=== PATIENT | female | born 1985 | race Caucasian/White ===

== ENCOUNTER 2018-06-22 01:43 | Emergency (ER) | payer MEDICAID ==
[~2018-06-22] VITALS: Ht 160 cm; Wt 83.8 kg
[~2018-06-22 01:43] MED LIST: NO HOME MEDS
[2018-06-22] MEDS ORDERED: ketorolac trometh. 30mg/ml inj. IV ONE (02:05)
[2018-06-22] MEDS ORDERED: LORazepam 2 mg/ml vial IV ONE (02:05)
[2018-06-22] MEDS ORDERED: diphenhydrAMINE 50 mg/ml inj IV ONE (02:05)
[2018-06-22] MEDS ORDERED: ondansetron/PF 4mg/2ml inj IV ONE (02:05)
[2018-06-22] MEDS ORDERED: normal saline 1000ML IV soln IVB ONE (02:05)
[2018-06-22 02:21] LABS: BASOPHILS # (AUTO) 0.2 X10'3 (0-0.2); BASOPHILS % (AUTO) 1.9 % (0-1); EOSINOPHILS % (AUTO) 0.3 % (0-6); HEMATOCRIT 39.8 % (35.0-45.0); HEMOGLOBIN 13.5 g/dl (12.0-16.0); LYMPHOCYTES % (AUTO) 11.5 % (21-51); MEAN CORPUSCULAR HEMOGLOBIN 32.2 PG (27.0-31.0); MEAN CORPUSCULAR VOLUME 94.8 FL (78-98); MEAN PLATELET VOLUME 7.6 FL (7.4-10.4); MONOCYTES # (AUTO) 0.3 X10'3 (0-0.9); NEUTROPHILS # (AUTO) 7.2 X10'3 (1.8-7.7); NEUTROPHILS % (AUTO) 82.3 % (42-75); PLATELET COUNT 291 X10'3 (140-440); RED CELL DISTRIBUTION WIDTH 12.1 % (11.5-14.5); WHITE BLOOD COUNT 8.7 X10'3 (4.5-11.0)
[2018-06-22 02:31] LABS: ALANINE AMINOTRANSFERASE 28 U/L (12-78); ALBUMIN/GLOBULIN RATIO 1.1 (1.1-1.5); ALKALINE PHOSPHATASE 92 IU/L (46-116); ANION GAP 13 (8-16); ASPARTATE AMINO TRANSFERASE 23 U/L (10-37); BILIRUBIN,TOTAL 0.5 MG/DL (0.1-1.0); BLOOD UREA NITROGEN 8 MG/DL (7-18); BUN/CREATININE RATIO 9.2 (6.6-38.0); CHLORIDE 104 MMOL/L (99-107); CREATININE 0.87 MG/DL (0.40-0.90); GLUCOSE 114 MG/DL (70-104); LIPASE 171 U/L (73-393); POTASSIUM 3.6 MMOL/L (3.5-5.1); SODIUM 141 MMOL/L (135-145); TOTAL CARBON DIOXIDE 23.8 MMOL/L (24-32); TOTAL PROTEIN 7.5 G/DL (6.4-8.2); eGFR 74 ML/MIN
[2018-06-22] MEDS ORDERED: ONDA8TAB9 PO (02:38)
[2018-06-22 03:09] VITALS: BP 133/63
== END 2018-06-22 03:12 | disposition home or self-care (01) ==
LOC: ER 01:43
DX: R10.10 Upper abdominal pain, unspecified (principal); R11.2 Nausea with vomiting, unspecified; R68.83 Chills (without fever); G89.29 Other chronic pain; J45.909 Unspecified asthma, uncomplicated; Z90.49 Acquired absence of other specified parts of digestive tract; Z12.10 Encounter for screening for malignant neoplasm of intestinal tract, unspecified
CPT/HCPCS: 36415; 80053; 83690; 85025; 96361; 96374; 96375; 99284; J1200; J1885; J2060; J2405

== ENCOUNTER 2018-06-26 21:46 | Emergency (ER) | payer MEDICAID ==
[~2018-06-26] VITALS: Ht 160 cm; Wt 58.0 kg
[~2018-06-26 21:46] MED LIST changes: +ONDA8TAB9 PO
[2018-06-26] MEDS ORDERED: ketorolac tromethamine 15mg/ml inj. IV ONE (23:25)
[2018-06-26] MEDS ORDERED: normal saline 1000ML IV soln IVB ONE (23:25)
[2018-06-26] MEDS ORDERED: haloperidol lactate 5mg/ml inj IM ONE (23:25)
[2018-06-26] MEDS ORDERED: proCHLORperazine 10 MG/2 ml inj IV ONE (23:25)
[2018-06-26] MEDS ORDERED: diphenhydrAMINE 50 mg/ml inj IV ONE (23:25)
[2018-06-26] MEDS ORDERED: PROC25SU30 PO (23:27)
[2018-06-27 00:06] LABS: BASOPHILS # (AUTO) 0.1 X10'3 (0-0.2); BASOPHILS % (AUTO) 1.1 % (0-1); EOSINOPHILS # (AUTO) 0.2 X10'3 (0-0.9); EOSINOPHILS % (AUTO) 2.4 % (0-6); HEMATOCRIT 39.6 % (35.0-45.0); HEMOGLOBIN 13.2 g/dl (12.0-16.0); LYMPHOCYTES # (AUTO) 1.5 X10'3 (1.1-4.8); LYMPHOCYTES % (AUTO) 17.2 % (21-51); MEAN CORPUSCULAR HGB CONC 33.4 % (33.0-36.5); MEAN CORPUSCULAR VOLUME 95.9 FL (78-98); MEAN PLATELET VOLUME 7.7 FL (7.4-10.4); MONOCYTES # (AUTO) 0.5 X10'3 (0-0.9); MONOCYTES % (AUTO) 5.3 % (2-12); NEUTROPHILS # (AUTO) 6.4 X10'3 (1.8-7.7); PLATELET COUNT 288 X10'3 (140-440); RED BLOOD COUNT 4.13 X10'6 (4.20-5.60); RED CELL DISTRIBUTION WIDTH 12.7 % (11.5-14.5); WHITE BLOOD COUNT 8.6 X10'3 (4.5-11.0)
[2018-06-27 00:16] VITALS: BP 118/54
[2018-06-27 00:27] LABS: ALANINE AMINOTRANSFERASE 27 U/L (12-78); ALBUMIN/GLOBULIN RATIO 1.1 (1.1-1.5); ALKALINE PHOSPHATASE 86 IU/L (46-116); ANION GAP 12 (8-16); ASPARTATE AMINO TRANSFERASE 23 U/L (10-37); BILIRUBIN,TOTAL 0.6 MG/DL (0.1-1.0); BLOOD UREA NITROGEN 16 MG/DL (7-18); BUN/CREATININE RATIO 19.8 (6.6-38.0); CHLORIDE 102 MMOL/L (99-107); CREATININE 0.81 MG/DL (0.40-0.90); GLUCOSE 82 MG/DL (70-104); LIPASE 178 U/L (73-393); MAGNESIUM 1.7 MG/DL (1.5-2.4); SODIUM 139 MMOL/L (135-145); TOTAL CARBON DIOXIDE 25.5 MMOL/L (24-32); TOTAL PROTEIN 7.6 G/DL (6.4-8.2); eGFR 80 ML/MIN
[2018-06-27 00:30] LABS: POTASSIUM 3.8 MMOL/L (3.5-5.1)
== END 2018-06-27 00:23 | disposition home or self-care (01) ==
LOC: ER 21:48
DX: K29.70 Gastritis, unspecified, without bleeding (principal); G43.A0 Cyclical vomiting, in migraine, not intractable; G89.29 Other chronic pain; R10.13 Epigastric pain; J45.909 Unspecified asthma, uncomplicated; Z98.890 Other specified postprocedural states; Z90.49 Acquired absence of other specified parts of digestive tract
CPT/HCPCS: 36415; 80053; 83690; 83735; 85025; 96361; 96372; 96374; 96375; 99284; J0780; J1200; J1630; J1885

== ENCOUNTER 2018-12-29 21:35 | Emergency (ER) | payer MEDICAID ==
[~2018-12-29] VITALS: Ht 160 cm; Wt 82.3 kg
[~2018-12-29 21:35] MED LIST changes: +PROC25SU30 PO
[2018-12-29] MEDS ORDERED: normal saline 1000ML IV soln IVB ONE (21:40)
[2018-12-29 22:01] LABS: BASOPHILS # (AUTO) 0.1 X10'3 (0-0.2); BASOPHILS % (AUTO) 0.9 % (0-1); EOSINOPHILS # (AUTO) 0.3 X10'3 (0-0.9); HEMATOCRIT 38.6 % (35.0-45.0); LYMPHOCYTES # (AUTO) 2.9 X10'3 (1.1-4.8); LYMPHOCYTES % (AUTO) 29.8 % (21-51); MEAN CORPUSCULAR HGB CONC 33.8 g/dL (33.0-36.5); MEAN CORPUSCULAR VOLUME 94.9 FL (78-98); MEAN PLATELET VOLUME 7.3 FL (7.4-10.4); MONOCYTES # (AUTO) 0.8 X10'3 (0-0.9); MONOCYTES % (AUTO) 8.2 % (2-12); NEUTROPHILS # (AUTO) 5.7 X10'3 (1.8-7.7); NEUTROPHILS % (AUTO) 58.1 % (42-75); PLATELET COUNT 289 X10'3 (140-440); RED BLOOD COUNT 4.06 X10'6 (4.20-5.60); RED CELL DISTRIBUTION WIDTH 13.3 % (11.5-14.5); WHITE BLOOD COUNT 9.8 X10'3 (4.5-11.0)
[2018-12-29 22:07] LABS: ALANINE AMINOTRANSFERASE 40 U/L (12-78); ALBUMIN 3.5 G/DL (3.4-5.0); ALBUMIN/GLOBULIN RATIO 1.1 (1.1-1.5); ALKALINE PHOSPHATASE 80 IU/L (46-116); ANION GAP 6 (8-16); ASPARTATE AMINO TRANSFERASE 23 U/L (10-37); BILIRUBIN,TOTAL 0.3 MG/DL (0.1-1.0); BLOOD UREA NITROGEN 8 MG/DL (7-18); BUN/CREATININE RATIO 9.4 (6.6-38.0); CHLORIDE 106 MMOL/L (99-107); CREATININE 0.85 MG/DL (0.40-0.90); GLUCOSE 112 MG/DL (70-104); POTASSIUM 3.6 MMOL/L (3.5-5.1); SODIUM 141 MMOL/L (135-145); TOTAL CARBON DIOXIDE 28.6 MMOL/L (24-32); TOTAL PROTEIN 6.8 G/DL (6.4-8.2); eGFR 76 ML/MIN
[2018-12-29 22:17] VITALS: BP 117/74
== END 2018-12-29 22:26 | disposition home or self-care (01) ==
LOC: ER 21:36
DX: R55 Syncope and collapse (principal); R42 Dizziness and giddiness; R61 Generalized hyperhidrosis; R10.9 Unspecified abdominal pain; J45.909 Unspecified asthma, uncomplicated; F12.90 Cannabis use, unspecified, uncomplicated; Z90.49 Acquired absence of other specified parts of digestive tract; Z79.899 Other long term (current) drug therapy
CPT/HCPCS: 36415; 71045; 80053; 85025; 93005; 99284

== ENCOUNTER 2019-07-25 13:09 | Outpatient (CLI) | payer MEDICAID | END 2019-07-25 23:59 | disposition home or self-care (01) | LOC: RAD 13:09 | PROVIDERS: ATTEND Psychiatry & Neurology Neurology | DX: R20.2 Paresthesia of skin (principal); J45.909 Unspecified asthma, uncomplicated | CPT/HCPCS: 95816 ==

== ENCOUNTER 2019-11-03 17:07 | Emergency (ER) | payer MEDICAID ==
[~2019-11-03] VITALS: Ht 160 cm; Wt 74.2 kg
[2019-11-03 17:50] VITALS: BP 108/60
[2019-11-03] MEDS ORDERED: acetaminophen 325mg tablet PO ONE (18:00)
[2019-11-03] MEDS ORDERED: ketorolac tromethamine 15mg/ml inj. IM ONE (19:00)
[2019-11-03] MEDS ORDERED: PRED20TA PO (19:01)
[2019-11-03] MEDS ORDERED: DOXY100C43 PO (19:01)
[2019-11-03] MEDS ORDERED: ALBU18HF2 INH (19:01)
[2019-11-03] MEDS ORDERED: ondansetron 4mg rapidly disintigrating tab PO ONE (19:10)
== END 2019-11-03 20:03 | disposition home or self-care (01) ==
LOC: ER 17:08
DX: J20.9 Acute bronchitis, unspecified (principal); B34.9 Viral infection, unspecified; J45.909 Unspecified asthma, uncomplicated; F12.90 Cannabis use, unspecified, uncomplicated; Z90.49 Acquired absence of other specified parts of digestive tract; Z79.899 Other long term (current) drug therapy
CPT/HCPCS: 96372; 99283; J1885

== ENCOUNTER 2023-08-08 20:48 | Emergency (ER) | payer MEDICAID ==
[~2023-08-08] VITALS: Ht 160 cm; Wt 65.9 kg
[~2023-08-08 20:48] MED LIST changes: +ALBU18HF2 INH
[2023-08-08 21:39] LABS: BASOPHILS # (AUTO) 0.2 X10'3 (0-0.2); BASOPHILS % (AUTO) 1.3 % (0-1); EOSINOPHILS # (AUTO) 0.3 X10'3 (0-0.9); EOSINOPHILS % (AUTO) 2.1 % (0-6); HEMATOCRIT 38.8 % (35.0-45.0); HEMOGLOBIN 12.9 g/dl (12.0-16.0); LYMPHOCYTES # (AUTO) 3.7 X10'3 (1.1-4.8); LYMPHOCYTES % (AUTO) 23.2 % (21-51); MEAN CORPUSCULAR HEMOGLOBIN 32.9 PG (27.0-31.0); MEAN CORPUSCULAR HGB CONC 33.1 g/dL (33.0-36.5); MEAN CORPUSCULAR VOLUME 99.3 FL (78-98); MONOCYTES # (AUTO) 0.9 X10'3 (0-0.9); MONOCYTES % (AUTO) 5.5 % (2-12); NEUTROPHILS # (AUTO) 10.9 X10'3 (1.8-7.7); NEUTROPHILS % (AUTO) 67.9 % (42-75); PLATELET COUNT 341 X10'3 (140-440); RED CELL DISTRIBUTION WIDTH 13.2 % (11.5-14.5)
[2023-08-08] MEDS ORDERED: ketorolac trometh. 30mg/ml inj. IV STA (21:45)
[2023-08-08] MEDS ORDERED: normal saline 1000ML IV soln IVB ONE (21:45)
[2023-08-08 21:46] LABS: BILIRUBIN,URINE NEGATIVE (Neg); CLARITY,URINE SLIGHTLY CLOUDY (Clear); COLOR,URINE YELLOW (Yellow); GLUCOSE, URINE NEGATIVE (Neg); KETONES,URINE NEGATIVE (Neg); LEUKOCYTE ESTERASE ,URINE NEGATIVE (Neg); NITRITES, URINE NEGATIVE (Neg); OCCULT BLOOD,URINE TRACE-INTACT (Neg); PROTEIN,URINE NEGATIVE (Neg); UROBILINOGEN,URINE 0.2 E.U/dL (0.2-1.0)
[2023-08-08 21:50] LABS: ALANINE AMINOTRANSFERASE 14 U/L (12-78); ALBUMIN 4.1 G/DL (3.4-5.0); ALBUMIN/GLOBULIN RATIO 1.3 (1.1-1.5); ALKALINE PHOSPHATASE 89 IU/L (46-116); ANION GAP 9 (8-16); ASPARTATE AMINO TRANSFERASE 23 U/L (10-37); BILIRUBIN,TOTAL 0.3 MG/DL (0.1-1.0); BLOOD UREA NITROGEN 13 MG/DL (7-18); BUN/CREATININE RATIO 14.1 (10.0-20.0); CALCIUM 9.2 MG/DL (8.5-10.1); CHLORIDE 102 MMOL/L (99-107); CREATININE 0.92 MG/DL (0.40-0.90); GLUCOSE 137 MG/DL (70-104); POTASSIUM 3.6 MMOL/L (3.5-5.1); SODIUM 140 MMOL/L (135-145); TOTAL PROTEIN 7.3 G/DL (6.4-8.2); eCRCL 67 ML/MIN; eGFR 68 ML/MIN
[2023-08-08 21:56] LABS: URINE HCG NEGATIVE (NEG)
[2023-08-08 21:58] LABS: UA COLLECTION TYPE VOIDED
--- NOTE | 2023-08-08 22:05 | NUR ---
ivp given by dar rn
[2023-08-08 22:12] LABS: WBC,URINE 0-4 /HPF (0-4)
[2023-08-08 22:13] LABS: BACTERIA,URINE 3+ /HPF (Neg); MUCUS STRANDS FEW /LPF (Neg); RENAL CELLS, URINE FEW /HPF; SQUAMOUS EPITHELIAL CELL,UR MANY /LPF (FEW); TRANSITIONAL EPI CELLS,URINE FEW /HPF
[2023-08-08] MEDS ORDERED: morphine 4 MG/ML inj SYRINge IV ONE (23:25)
[2023-08-08] MEDS ORDERED: ondansetron/PF 4mg/2ml inj IV ONE (23:25)
[2023-08-09 01:08] VITALS: BP 130/70; PULSE 74; RESP 18; TEMP 98.6; O2SAT 98
[2023-08-09] MEDS ORDERED: HYDR-3965 PO (02:22)
[2023-08-09] MEDS ORDERED: ONDA8TAB13 PO (02:22)
--- NOTE | 2023-08-09 02:42 | NUR ---
iv dc'd pt being dischsrged dressing applied
== END 2023-08-09 02:44 | disposition home or self-care (01) ==
LOC: ER 20:49
DX: N20.0 Calculus of kidney (principal); J45.909 Unspecified asthma, uncomplicated; F12.90 Cannabis use, unspecified, uncomplicated; Z90.49 Acquired absence of other specified parts of digestive tract; Z90.710 Acquired absence of both cervix and uterus; Z98.890 Other specified postprocedural states; Z79.899 Other long term (current) drug therapy
CPT/HCPCS: 36415; 74176; 80053; 81001; 81025; 85025; 96361; 96374; 96375; 99285; J1885; J2270; J2405; J7030

== ENCOUNTER 2024-02-06 23:41 | Emergency (ER) | payer MEDICAID ==
[~2024-02-06] VITALS: Ht 160 cm; Wt 68.2 kg
[~2024-02-06 23:41] MED LIST changes: +ONDA8TAB13 PO
[2024-02-07] MEDS ORDERED: ketorolac trometh. 30mg/ml inj. IV ONE (00:25)
[2024-02-07 00:38] LABS: BASOPHILS % (AUTO) 0.4 % (0-1); EOSINOPHILS # (AUTO) 0.1 X10'3 (0-0.9); EOSINOPHILS % (AUTO) 0.8 % (0-6); HEMATOCRIT 38.4 % (35.0-45.0); HEMOGLOBIN 12.9 g/dl (12.0-16.0); LYMPHOCYTES # (AUTO) 1.5 X10'3 (1.1-4.8); LYMPHOCYTES % (AUTO) 13.2 % (21-51); MEAN CORPUSCULAR HEMOGLOBIN 33.9 PG (27.0-31.0); MEAN CORPUSCULAR HGB CONC 33.5 g/dL (33.0-36.5); MEAN CORPUSCULAR VOLUME 101.1 FL (78-98); MONOCYTES # (AUTO) 0.8 X10'3 (0-0.9); MONOCYTES % (AUTO) 7.1 % (2-12); NEUTROPHILS % (AUTO) 78.5 % (42-75); PLATELET COUNT 254 X10'3 (140-440); RED CELL DISTRIBUTION WIDTH 14.6 % (11.5-14.5); WHITE BLOOD COUNT 11.5 X10'3 (4.5-11.0)
[2024-02-07] MEDS: ondansetron/PF 4mg/2ml inj IV ONE (00:42)
[2024-02-07] MEDS: normal saline 1000ML IV soln IVB ONE (00:42)
[2024-02-07] MEDS: ketorolac tromethamine 15mg/ml inj. IV ONE (00:42)
[2024-02-07 00:51] LABS: ALANINE AMINOTRANSFERASE 40 U/L (12-78); ALBUMIN 3.8 G/DL (3.4-5.0); ALBUMIN/GLOBULIN RATIO 1.1 (1.1-1.5); ALKALINE PHOSPHATASE 89 IU/L (46-116); ANION GAP 5 (8-16); ASPARTATE AMINO TRANSFERASE 22 U/L (10-37); BILIRUBIN,TOTAL 0.3 MG/DL (0.1-1.0); BLOOD UREA NITROGEN 18 MG/DL (7-18); CALCIUM 9.3 MG/DL (8.5-10.1); CHLORIDE 103 MMOL/L (99-107); CREATININE 0.82 MG/DL (0.40-0.90); GLUCOSE 147 MG/DL (70-104); LIPASE 43 U/L (16-77); POTASSIUM 3.7 MMOL/L (3.5-5.1); SODIUM 137 MMOL/L (135-145); TOTAL CARBON DIOXIDE 28.8 MMOL/L (24-32); TOTAL PROTEIN 7.2 G/DL (6.4-8.2); eCRCL 75 ML/MIN; eGFR 77 ML/MIN
[2024-02-07 01:45] LABS: BILIRUBIN,URINE NEGATIVE (Neg); CLARITY,URINE SLIGHTLY CLOUDY (Clear); COLOR,URINE YELLOW (Yellow); GLUCOSE, URINE NEGATIVE (Neg); KETONES,URINE NEGATIVE (Neg); LEUKOCYTE ESTERASE ,URINE NEGATIVE (Neg); NITRITES, URINE NEGATIVE (Neg); OCCULT BLOOD,URINE SMALL (Neg); PH,URINE 5.5 (4.8-8.0); PROTEIN,URINE TRACE mg/dl (Neg); URINE HCG NEGATIVE (NEG); UROBILINOGEN,URINE 0.2 E.U/dL (0.2-1.0)
[2024-02-07 01:48] LABS: UA COLLECTION TYPE NON-SPECIFIED
[2024-02-07 01:51] LABS: MUCUS STRANDS FEW /LPF (Neg); SQUAMOUS EPITHELIAL CELL,UR MANY /LPF (FEW)
[2024-02-07 01:52] LABS: BACTERIA,URINE FEW /HPF (Neg); WBC,URINE 0-4 /HPF (0-4)
[2024-02-07 01:54] LABS: TRANSITIONAL EPI CELLS,URINE FEW /HPF
[2024-02-07] MEDS: morphine 4 MG/ML inj SYRINge IV ONE (01:58)
[2024-02-07] MEDS: acetaminophen 1,000mg/100ml IV 100 ML IV ONE (01:59)
[2024-02-07] MEDS ORDERED: HYDR-3965 PO (04:06)
[2024-02-07] MEDS ORDERED: ONDA8TAB13 PO (04:06)
[2024-02-07] MEDS: oxyCODONE IR 5mg (immed. release) tablet PO ONE (04:14)
[2024-02-07 04:27] VITALS: BP 112/67; PULSE 74; RESP 16; TEMP 98.2; O2SAT 97
== END 2024-02-07 04:29 | disposition home or self-care (01) ==
LOC: ER 23:41
DX: N20.0 Calculus of kidney (principal); R11.2 Nausea with vomiting, unspecified; J45.909 Unspecified asthma, uncomplicated; F12.90 Cannabis use, unspecified, uncomplicated; Z72.89 Other problems related to lifestyle; Z98.890 Other specified postprocedural states; Z90.49 Acquired absence of other specified parts of digestive tract; Z79.899 Other long term (current) drug therapy
CPT/HCPCS: 36415; 74176; 80053; 81001; 81025; 83690; 85025; 96361; 96374; 96375; 99285; J0131; J1885; J2270; J2405; J7030; 96365

== ENCOUNTER 2024-11-15 06:16 | Outpatient (CLI) | payer MEDICAID ==
[~2024-11-15 06:16] MED LIST changes: +ONDA-245 PO; -ONDA8TAB13 PO
[2024-11-15] MEDS ORDERED: iohexol 300 MG/1 ML 50ml polymer ONE (06:42)
[2024-11-15] MEDS ORDERED: GADOTERATE MEGLUMINE 7.5 MMOL/15 ML VIAL IV ONE (06:42)
[2024-11-15] MEDS ORDERED: LIDOcaine 1% 30ml preserv. free vial ONE (06:42)
[2024-11-15] MEDS ORDERED: LIDOcaine 1%/PF 5ML 10 MG/ML VIAL ONE (06:42)
== END 2024-11-15 23:59 | disposition home or self-care (01) ==
LOC: RAD 06:16
PROVIDERS: ATTEND Pediatrics Sports Medicine
DX: M25.511 Pain in right shoulder (principal); M25.319 Other instability, unspecified shoulder; S43.431A Superior glenoid labrum lesion of right shoulder, initial encounter; X58.XXXA Exposure to other specified factors, initial encounter; Y93.89 Activity, other specified; Y92.89 Other specified places as the place of occurrence of the external cause; Y99.8 Other external cause status; M75.111 Incomplete rotator cuff tear or rupture of right shoulder, not specified as traumatic
CPT/HCPCS: 23350; 73222; 77002; A9575; J2003; J3490; Q9967